=== PATIENT | female | born 2005 | race Caucasian/White ===

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

== ENCOUNTER 2025-03-01 14:17 | Emergency (ER) | payer OTHER ==
[~2025-03-01] VITALS: Ht 160 cm; Wt 52.2 kg
[2025-03-01] MEDS ORDERED: ONDANSETRON HCL 2 MG/ML VIAL ONE (16:07)
[2025-03-01] MEDS ORDERED: FAMOTIDINE/PF 20 MG/2 ML VIAL ONE (16:07)
[2025-03-01] MEDS ORDERED: ONDANSETRON HCL 2 MG/ML VIAL IV ONE (16:15)
[2025-03-01] MEDS ORDERED: FAMOTIDINE/PF 20 MG/2 ML VIAL IV ONE (16:15)
[2025-03-01 16:51] LABS: BASO % 0.3 % (0.1-1.2); EOS # 0.00 (0.04-0.54); EOS % 0.0 % (0.7-7.0); LYMPH # 0.71 (1.18-3.74); LYMPH % 5.0 % (19.3-53.1); MEAN PLATELET VOLUME 9.70 fl (9.4-12.4); MONO # 0.60 (0.24-0.82); MONO % 4.2 % (4.7-12.5); NEUT # 12.74 (1.56-6.13); NEUT % 90.2 % (34.0-71.1); RED CELL DISTRIBUTION WIDTH 12.9 % (11.6-14.4)
[2025-03-01 17:14] LABS: BUN CREA RATIO 15.0 (7.0-25.0); CREATININE SERUM 0.84 mg/dL (0.55-1.02); GFR 85.59; GLUCOSE FASTING 183.0 mg/dL (65-100); OSMOLALITY SERUM 284.0 MOSM/KG (275-295)
== END 2025-03-01 18:09 | disposition home or self-care (01) ==
LOC: ER 14:17
PROVIDERS: General Practice
DX: K29.70 Gastritis, unspecified, without bleeding (principal); S23.41XA Sprain of ribs, initial encounter